=== PATIENT | female | born 1965 ===

== ENCOUNTER 2024-08-07 09:21 | Outpatient (CLI) | payer OTHER | END 2024-08-07 09:24 | disposition home or self-care (01) | LOC: SONOGRAMA 09:21 | DX: M65.841 Other synovitis and tenosynovitis, right hand (principal); G56.01 Carpal tunnel syndrome, right upper limb ==

== ENCOUNTER 2024-09-08 14:41 | Outpatient (CLI) | payer OTHER | END 2024-09-08 15:33 | disposition home or self-care (01) | LOC: MRI 14:41 | DX: M71.22 Synovial cyst of popliteal space [Baker], left knee (principal); S86.112A Strain of other muscle(s) and tendon(s) of posterior muscle group at lower leg level, left leg, initial encounter; X58.XXXA Exposure to other specified factors, initial encounter; Y93.9 Activity, unspecified; Y92.9 Unspecified place or not applicable; Y99.9 Unspecified external cause status | CPT/HCPCS: 73721 ==

== ENCOUNTER 2024-10-13 13:30 | Outpatient (CLI) | payer OTHER | END 2024-10-13 13:31 | disposition home or self-care (01) | LOC: RAD 13:30 | DX: M25.541 Pain in joints of right hand (principal) ==